=== PATIENT | male | born 1960 | race Two or more races ===

== ENCOUNTER 2017-01-17 15:43 | Emergency (ER) | payer OTHER ==
[~2017-01-17] VITALS: Ht 180.3 cm; Wt 90.7 kg
[2017-01-17 16:07] VITALS: BP 145/90
== END 2017-01-17 18:18 | disposition home or self-care (01) ==
LOC: EDBD 15:43 → ER 15:46
DX: M79.1 Myalgia (principal); V43.52XA Car driver injured in collision with other type car in traffic accident, initial encounter; Y92.89 Other specified places as the place of occurrence of the external cause; Y99.8 Other external cause status
CPT/HCPCS: 73020